=== PATIENT | female | born 1960 | race African-American/Black ===

== ENCOUNTER 2019-04-04 04:39 | Inpatient (IN) | payer SELFPAY ==
[~2019-04-04] VITALS: Ht 162.6 cm; Wt 64.4 kg
[2019-04-04] MEDS ORDERED: SODIUM CHLORIDE 0.9% 1,000 ML IV ONE (05:20)
[2019-04-04] MEDS ORDERED: ONDANSETRON HCL 4MG/2ML INJ IV STA (05:20)
[2019-04-04] MEDS ORDERED: HYDROCODONE/ACETAMINOPHEN 5/325MG TABLET PO ONE (05:30)
[2019-04-04 05:46] LABS: BASOPHILS % 0.6 % (0.0-2.0); EOSINOPHILS % 1.2 % (0.0-5.0); HEMOGLOBIN. 12.5 g/dL (12.0-16.0); LYMPHOCYTES % 8.4 % (20.0-50.0); MEAN CORPUSCULAR HEMOGLOBIN 26.8 pg (28.0-32.0); MEAN CORPUSCULAR VOLUME 79.5 fL (81.0-99.0); MEAN PLATELET VOLUME 6.9 fl (7.4-10.4); MONOCYTES % 10.1 % (2.0-8.0); NEUTROPHILS % 79.7 % (40.0-76.0); PLATELET 225 x1000/uL (130-400); RED BLOOD CELL COUNT 4.66 mill/uL (4.2-5.4); RED CELL DISTRIBUTION WIDTH 14.8 % (11.6-14.6)
[2019-04-04 05:57] LABS: CHLORIDE 87 mEq/L (98-107)
[2019-04-04 06:02] LABS: ETHANOL BLOOD < 10 mg/dL
[2019-04-04] MEDS: SODIUM CHLORIDE 0.9% 1,000 ML IV SCH ×2 (07:16→20:36)
[2019-04-04] MEDS ORDERED: NITROGLYCERIN 0.4MG TABLET SL SL PRN (07:30)
[2019-04-04] MEDS ORDERED: ZOLPIDEM TARTRATE 5MG TABLET PO PRN (07:30)
[2019-04-04] MEDS ORDERED: CLONIDINE 0.1MG TABLET PO PRN (07:30)
[2019-04-04] MEDS ORDERED: POTASSIUM CHLORIDE 20MEQ TABLET SR PO SCH (07:30)
[2019-04-04] MEDS ORDERED: ACETAMINOPHEN 325MG TABLET PO PRN (07:30)
[2019-04-04] MEDS ORDERED: MAGNESIUM/ALUMINUM HYDROXIDE/SIMETHICONE 30ML UDC PO PRN (07:30)
[2019-04-04] MEDS ORDERED: ONDANSETRON HCL 4MG/2ML INJ IV PRN (07:30)
[2019-04-04] MEDS ORDERED: ENOXAPARIN 40MG/0.4ML SYR SUBCUT SCH (07:30)
[2019-04-04] MEDS ORDERED: IPRATROPIUM/ALBUTEROL 0.5-3(2.5)MG/3ML NEB INH PRN (07:30)
[2019-04-04] MEDS ORDERED: GUAIFENESIN 200MG/10ML SUGAR FREE UDC PO PRN (07:30)
[2019-04-04] MEDS ORDERED: DOCUSATE SODIUM 100MG CAPSULE PO PRN (07:30)
[2019-04-04 07:48] LABS: T4 FREE 1.15 ng/dL (0.76-1.46)
[2019-04-04 08:35] LABS: VITAMIN B12 SERUM > 2000.0 pg/mL (211-911)
[2019-04-04] MEDS ORDERED: ASPIRIN 325MG EC TABLET PO SCH (09:00)
[2019-04-04] MEDS: FAMOTIDINE 20MG TABLET PO SCH ×2 (09:29→21:46)
[2019-04-04 10:00] VITALS: BP 139/80
[2019-04-04 10:04] VITALS: BP 139/80
[2019-04-04] MEDS ORDERED: KETOROLAC 15MG/ML VIAL IV PRN (11:00)
[2019-04-04 12:00] VITALS: BP 128/73
[2019-04-04] MEDS: ASPIRIN 325MG EC TABLET PO SCH (13:11)
[2019-04-04] MEDS: ENOXAPARIN 40MG/0.4ML SYR SUBCUT SCH (13:12)
[2019-04-04 16:00] VITALS: BP 176/76
[2019-04-04 17:47] LABS: CREATINE KINASE 268 IU/L (26-192)
[2019-04-04 17:48] LABS: CREATINE KINASE MB FRACTION 2.3 ng/mL (0.5-3.6)
[2019-04-04 20:00] VITALS: BP 129/69
[2019-04-04 23:51] LABS: CREATINE KINASE 241 IU/L (26-192); CREATINE KINASE MB FRACTION 1.9 ng/mL (0.5-3.6)
[2019-04-05 00:43] VITALS: BP 156/60
[2019-04-05 00:45] VITALS: BP 155/72
[2019-04-05 02:14] LABS: *AMPHETAMINES SCREEN URINE NEGATIVE (NEGATIVE); *BARBITURATES SCREEN URINE NEGATIVE (NEGATIVE); *BENZODIAZEPINES SCREEN URINE NEGATIVE (NEGATIVE); *COCAINE SCREEN URINE NEGATIVE (NEGATIVE); METHADONE URINE SCREEN NEGATIVE (NEGATIVE); OPIATES URINE SCREEN PRESUMTIVE POSITIVE (NEGATIVE)
[2019-04-05 02:15] LABS: CANNABINOID URINE SCREEN PRESUMTIVE POSITIVE (NEGATIVE); PHENCYCLIDINE URINE SCREEN NEGATIVE (NEGATIVE)
[2019-04-05 04:00] VITALS: BP 147/75
[2019-04-05 08:00] VITALS: BP 141/69
[2019-04-05 08:14] LABS: CHLORIDE 104 mEq/L (98-107)
[2019-04-05] MEDS: FAMOTIDINE 20MG TABLET PO SCH (09:53)
[2019-04-05] MEDS: ASPIRIN 325MG EC TABLET PO SCH (09:53)
[2019-04-05] MEDS: ENOXAPARIN 40MG/0.4ML SYR SUBCUT SCH (09:54)
[2019-04-05 10:21] VITALS: BP_SYST 141; BP_SYST 153; BP_DIAS 69; BP_DIAS 78
[2019-04-05 11:40] VITALS: BP 153/78
== END 2019-04-05 12:37 | disposition home or self-care (01) | DRG 426 ==
LOC: ER 04:39 → 5WST 05:55 → ENRESERV 07:09
PROVIDERS: ADMIT Internal Medicine; ATTEND Internal Medicine
DX: E87.1 Hypo-osmolality and hyponatremia (principal); E87.6 Hypokalemia; F12.10 Cannabis abuse, uncomplicated; I10 Essential (primary) hypertension; M10.9 Gout, unspecified; T50.2X5A Adverse effect of carbonic-anhydrase inhibitors, benzothiadiazides and other diuretics, initial encounter; R55 Syncope and collapse; J44.9 Chronic obstructive pulmonary disease, unspecified; R63.1 Polydipsia; Z87.891 Personal history of nicotine dependence; Y92.89 Other specified places as the place of occurrence of the external cause; Z71.6 Tobacco abuse counseling
CPT/HCPCS: 36415; 71045; 73130; 80048; 80061; 80305; 80320; 82550; 82553; 82607; 82746; 83036; 83540; 83550; 83605; 83735; 83880; 84439; 84443; 84484; 85379; 93005; 93970; 99285; J1650; J1885; J2405; J7030; J7040; J7620; G0480